=== PATIENT | female | born 1975 | race Caucasian/White ===

== ENCOUNTER → 2021-12-28 | Outpatient (CLI) | payer OTHER ==
--- NOTE | 2022-02-06 10:24 | P.CEMON ---
Sinus rhythm Sinus tachycardia Nonsustained ventricular tachycardia episodes 147 beats, another for 4 beats and yet another for 4 beats Occasional PVCs
== END | disposition home or self-care (01) ==
LOC: RADECHMAIN 07:39
PROVIDERS: ATTEND Family Medicine
DX: R00.2 Palpitations (principal); R00.0 Tachycardia, unspecified
CPT/HCPCS: 93270

== ENCOUNTER 2022-07-04 05:00 | Observation (INO) | payer OTHER ==
[2022-07-04] MEDS ORDERED: SODIUM CHLORIDE 0.9% 1,000 ML IV STA (05:07)
[2022-07-04] MEDS ORDERED: MORPHINE SULFATE 4 MG/ML SYRINGE IV STA (05:07)
[2022-07-04] MEDS ORDERED: ONDANSETRON 4 MG/2 ML VIAL IVP STA (05:07)
--- NOTE | 2022-07-04 05:08 | ED ---
Abdominal Pain HPI <Serene Becerra - Last Filed: 07/04/22 09:13> - General Source: patient, RN notes reviewed, old records reviewed Mode of arrival: ambulatory Limitations: no limitations - History of Present Illness MD Complaint: abdominal pain -: hour(s) Location: periumbilical, epigastric Radiation: epigastric Migration to: epigastric Severity: moderate Quality: stabbing, aching Consistency: intermittent Improves With: nothing Worsens With: nothing Context: sick contacts Associated Symptoms: nausea, vomiting Treatments Prior to Arrival: NSAIDs <Evangelista Ambriz - Last Filed: 07/12/22 22:06> - General Chief Complaint: Abdominal Pain Stated Complaint: Abd Pain Time Seen by Provider: 07/04/22 05:08 - Related Data Home Medications Medication Instructions Recorded Confirmed Liraglutide [Saxenda] 3 mg SQ DAILY 07/04/22 07/04/22 Previous Rx's Medication Instructions Recorded HYDROcodone/APAP 5-325MG [Douglas 1 tab PO Q6HR PRN 3 Days #12 tab 07/05/22 5-325] Levofloxacin [Levaquin] 500 mg PO DAILY 10 Days #10 tab 07/05/22 Docusate [Colace] 100 mg PO BID PRN #20 capsule 07/06/22 Famotidine [Pepcid] 20 mg PO DAILY #30 tablet 07/06/22 Allergies Allergy/AdvReac Type Severity Reaction Status Date / Time hydromorphone [From Dilaudid] Allergy Itching Verified 07/05/22 07:09 piperacillin [From Zosyn] Allergy Rash/Hives Verified 07/05/22 07:09 tazobactam [From Zosyn] Allergy Rash/Hives Verified 07/05/22 07:09 Review of Systems ROS Other: All systems not noted in ROS Statement are negative. <Serene Becerra - Last Filed: 07/04/22 09:13> ROS Other: All systems not noted in ROS Statement are negative. <Evangelista Ambriz - Last Filed: 07/12/22 22:06> ROS Statement: Those systems with pertinent positive or pertinent negative responses have been documented in the HPI. Past Medical History Past Medical History: No Reported History History of Any Multi-Drug Resistant Organisms: None Reported Past Surgical History: No Surgical Hx Reported Past Psychological History: No Psychological Hx Reported Smoking Status: Never smoker Past Alcohol Use History: Rare Past Drug Use History: None Reported <Evangelista Ambriz - Last Filed: 07/12/22 22:06> General Exam Limitations: no limitations General appearance: alert, in no apparent distress Head exam: Present: atraumatic, normocephalic, normal inspection Eye exam: Present: normal appearance, PERRL, EOMI. Absent: scleral icterus, conjunctival injection, periorbital swelling ENT exam: Present: normal exam, mucous membranes moist Neck exam: Present: normal inspection. Absent: tenderness, meningismus, lymphadenopathy Respiratory exam: Present: normal lung sounds bilaterally. Absent: respiratory distress, wheezes, rales, rhonchi, stridor Cardiovascular Exam: Present: regular rate, normal rhythm, normal heart sounds. Absent: systolic murmur, diastolic murmur, rubs, gallop, clicks GI/Abdominal exam: Present: soft, normal bowel sounds. Absent: distended, tenderness, guarding, rebound, rigid Extremities exam: Present: normal inspection, full ROM, normal capillary refill. Absent: tenderness, pedal edema, joint swelling, calf tenderness Back exam: Present: normal inspection Neurological exam: Present: alert, oriented X3, CN II-XII intact Psychiatric exam: Present: normal affect, normal mood Skin exam: Present: warm, dry, intact, normal color. Absent: rash <Evangelista Ambriz - Last Filed: 07/12/22 22:06> Course <Evangelista Ambriz - Last Filed: 07/12/22 22:06> Vital Signs 07/04/22 07/04/22 07/04/22 05:02 07:58 09:27 Temperature 97.5 F L Pulse Rate 72 67 67 Respiratory 18 18 18 Rate Blood Pressure 128/69 116/74 114/80 O2 Sat by Pulse 100 99 97 Oximetry 07/04/22 07/04/22 07/04/22 10:50 13:08 16:00 Temperature 97.5 F L Pulse Rate 64 66 65 Respiratory 18 16 16 Rate Blood Pressure 114/76 116/83 116/85 O2 Sat by Pulse 98 100 99 Oximetry 07/04/22 17:34 Temperature 97.6 F Pulse Rate 61 Respiratory 16 Rate Blood Pressure 119/84 O2 Sat by Pulse 99 Oximetry - Reevaluation(s) Reevaluation #1: 07/04/22 Medical records reviewed Patient symptoms improved here in the ER Patient informed of results and questions answered (Evangelista Ambriz) Medical Decision Making - Lab Data Result diagrams: 07/04/22 05:54 07/04/22 05:54 <Serene Becerra - Last Filed: 07/04/22 09:13> - Lab Data Result diagrams: 07/05/22 18:33 07/05/22 05:10 <Evangelista Ambriz - Last Filed: 07/12/22 22:06> - Medical Decision Making Patient was signed out to me. Ultrasound does return. Concerns for acute on chronic cholecystitis. Patient also has cholelithiasis. Did receive multiple doses of pain medications in the emergency department. Spoke with Dr. Crowe who is agreeable to admit the patient for observation. (Serene Becerra) - Lab Data Lab Results 07/04/22 07/04/22 07/04/22 Range/Units 05:54 05:54 05:54 WBC 6.9 (3.8-10.6) k/uL RBC 4.80 (3.80-5.40) m/uL Hgb 13.0 (11.4-16.0) gm/dL Hct 38.7 (34.0-46.0) % MCV 80.6 (80.0-100.0) fL MCH 27.1 (25.0-35.0) pg MCHC 33.6 (31.0-37.0) g/dL RDW 14.7 (11.5-15.5) % Plt Count 216 (150-450) k/uL MPV 7.3 Neutrophils % 59 % Lymphocytes % 31 % Monocytes % 4 % Eosinophils % 4 % Basophils % 0 % Neutrophils # 4.0 (1.3-7.7) k/uL Lymphocytes # 2.1 (1.0-4.8) k/uL Monocytes # 0.3 (0-1.0) k/uL Eosinophils # 0.3 (0-0.7) k/uL Basophils # 0.0 (0-0.2) k/uL PT 10.3 (9.0-12.0) sec INR 0.9 (<1.2) APTT 23.7 (22.0-30.0) sec Sodium 138 (137-145) mmol/L Potassium 4.4 (3.5-5.1) mmol/L Chloride 107 (98-107) mmol/L Carbon Dioxide 26 (22-30) mmol/L Anion Gap 5 mmol/L BUN 14 (7-17) mg/dL Creatinine 0.85 (0.52-1.04) mg/dL Est GFR (CKD-EPI)AfAm >90 (>60 ml/min/1.73 sqM) Est GFR (CKD-EPI)NonAf 82 (>60 ml/min/1.73 sqM) Glucose 96 (74-99) mg/dL Calcium 8.6 (8.4-10.2) mg/dL Total Bilirubin 1.0 (0.2-1.3) mg/dL AST 32 (14-36) U/L ALT 28 (4-34) U/L Alkaline Phosphatase 82 (38-126) U/L Total Protein 7.0 (6.3-8.2) g/dL Albumin 4.2 (3.5-5.0) g/dL Amylase 43 (30-110) U/L Lipase 151 (23-300) U/L Disposition Decision to Admit Reason: Admit from EC Decision Date: 07/04/22 Decision Time: 09:14 <Serene Becerra - Last Filed: 07/04/22 09:13> Is patient prescribed a controlled substance at d/c from ED?: No Time of Disposition: 07:00 <Evangelista Ambriz - Last Filed: 07/12/22 22:06> Clinical Impression: Abdominal pain, Cholelithiasis, Cholecystitis Disposition: ADMITTED IP TO THIS [facility] Condition: Good
[2022-07-04 06:03] LABS: Basophils % (A) 0 %; Eosinophils # (A) 0.3 k/uL (0-0.7); Eosinophils % (A) 4 %; HCT 38.7 % (34.0-46.0); Lymphocytes # (A) 2.1 k/uL (1.0-4.8); Lymphocytes % (A) 31 %; MCH 27.1 pg (25.0-35.0); MCHC 33.6 g/dL (31.0-37.0); MCV 80.6 fL (80.0-100.0); Mean Platelet Volume 7.3; Monocytes # (A) 0.3 k/uL (0-1.0); Monocytes % (A) 4 %; Neutrophils % (A) 59 %; Platelet Count 216 k/uL (150-450); RDW 14.7 % (11.5-15.5); WBC 6.9 k/uL (3.8-10.6)
[2022-07-04 06:15] LABS: ALT 28 U/L (4-34); AST 32 U/L (14-36); African American GFR (CKD) >90 (>60 ml/min/1.73 sqM); Albumin 4.2 g/dL (3.5-5.0); Alkaline Phosphatase 82 U/L (38-126); Amylase 43 U/L (30-110); Anion Gap 5 mmol/L; Blood Urea Nitrogen 14 mg/dL (7-17); Calcium 8.6 mg/dL (8.4-10.2); Carbon Dioxide 26 mmol/L (22-30); Chloride 107 mmol/L (98-107); Glucose 96 mg/dL (74-99); Lipase 151 U/L (23-300); Non-African American GFR(CKD) 82 (>60 ml/min/1.73 sqM); Potassium 4.4 mmol/L (3.5-5.1); Sodium 138 mmol/L (137-145)
[2022-07-04 06:18] LABS: INR 0.9 (<1.2); Partial Thromboplastin Time 23.7 sec (22.0-30.0); Prothrombin Time 10.3 sec (9.0-12.0)
--- NOTE | 2022-07-04 06:55 | CT ---
EXAMINATION TYPE: CT abdomen pelvis w con DATE OF EXAM: 07/04/2022 COMPARISON: None HISTORY: Upper abd pain, radiating around back CT DLP: 1798 mGycm Automated exposure control for dose reduction was used. CONTRAST: Performed with IV Contrast, patient injected with 100 mL of Isovue 300. Images obtained from the diaphragm to the floor the pelvis with the IV contrast. There are some interstitial infiltrates and subsegmental atelectasis at the lung bases. Heart size is normal. No pericardial effusion. There is fatty infiltration of the liver. There are multiple calcif ied gallstones. Spleen is intact. Stomach is intact. No pancreatic mass. The bile ducts are not dilat ed. There is no adrenal mass. Kidneys show satisfactory contrast opacification. There is no hydronephrosi s. Appendix is intact. The bladder distends smoothly. Uterus is anteverted. No free fluid in the pelv is. No pelvic mass. The lumbar vertebrae have normal alignment. Posterior elements are intact. No compression fracture. T he bony pelvis is intact. Hip joints are intact. Small bowel pattern is normal. Terminal ileum is intact. Appendix is posterior and appears normal. Li alla is enlarged and measures 21.5 cm. IMPRESSION: Normal appendix. No acute abnormality in the abdomen and pelvis. Cholelithiasis. No dilated ducts. Fatty infiltration of the liver and hepatomegaly.
[2022-07-04] MEDS ORDERED: HYDROmorphone 0.5 MG/0.5 ML SYRINGE IVP STA (07:02)
[2022-07-04] MEDS ORDERED: KETOROLAC 15 MG/ML 1 ML VIAL IVP STA (07:02)
--- NOTE | 2022-07-04 08:03 | US ---
EXAMINATION TYPE: US gallbladder DATE OF EXAM: 07/04/2022 COMPARISON: CT same day CLINICAL HISTORY: 46-year-old female pain. Episodes of abdominal pain, gb stones on CT TECHNIQUE: Multiple sonographic images of the right upper quadrant are obtained. FINDINGS: EXAM MEASUREMENTS: Liver Length: 18.8 cm Gallbladder Wall: 0.4 cm CBD: 0.6 cm Right Kidney: 10.7 x 4.1 x 4.7 cm CLINICAL EDUCATION CONSULTANT NOTES:bowel gas limits exam Pancreas: Only portions of the pancreatic body are seen. The head and tail are secured by bowel gas s hadowing. Liver: Mildly enlarged, echogenic and difficult to penetrate Gallbladder: Large fold with multiple stones. The wall is mildly thickened and when rolling patient LLD, neck stone did not move. No surrounding fluid. Evidence for sonographic Kebede's sign: yes CBD: wnl Right Kidney: 1.0 x 0.9 cm mid pole stone. No hydronephrosis. IMPRESSION: 1. There is cholelithiasis and mild gallbladder wall thickening which may reflect chronic cholecystit is. However, given the positive sonographic Kebede sign, patient may be developing acute cholecystiti s. If further imaging assessment is desired, HIDA scan can be considered. 2. Bile duct upper limits of normal in caliber at 6 mm. 3. Mild hepatomegaly at 18.8 cm with moderate to severe hepatic steatosis. Correlate with LFTs, lipid profile, and patient risk factors. 4. A 1 cm nonobstructive right renal calculus.
[2022-07-04] MEDS ORDERED: PIPERACILLIN-TAZOBACTAM 3.375 GM in SODIUM CHLORIDE 0.9% 100 ML IVPB STA (09:11)
[2022-07-04] MEDS ORDERED: ONDANSETRON 4 MG/2 ML VIAL IVP PRN (09:14)
[2022-07-04] MEDS ORDERED: NALOXONE 0.4 MG/ML 1 ML VIAL IV PRN (09:14)
[2022-07-04] MEDS: SODIUM CHLORIDE 0.9% 1,000 ML IV SCH ×2 (09:27→20:57)
[2022-07-04] MEDS ORDERED: diphenhydrAMINE 50 MG/ML 1 ML VIAL IVP STA (09:44)
--- NOTE | 2022-07-04 13:35 | P.GSHP ---
History of Present Illness H&P Date: 07/04/22 CHIEF COMPLAINT: Abdominal pain HISTORY OF PRESENT ILLNESS: This is a 46-year-old female presented to the hospital with complaints of right upper quadrant abdominal pain that radiates to her back. She reports symptoms started yesterday evening around 9:30. She did eat [employer] for dinner. She denies any nausea or vomiting. She reports having similar symptoms about a month ago that resolved on her own. Patient reports that the pain was very severe she is required multiple doses of IV pain medication in the ER. Patient denies any fevers chills or sweats. She denies any prior history of abdominal surgery. She was on Zosyn this is been discontinued due to it causing hives. She received a dose of Benadryl and the ER. PAST MEDICAL HISTORY: Heart palpitations PAST SURGICAL HISTORY: See below MEDICATIONS: See below ALLERGIES: See below SOCIAL HISTORY: No illicit drug use. REVIEW OF SYSTEMS: CONSTITUTIONAL: Denies fever or chills. HEENT: Denies blurred vision, vision changes, or eye pain. Denies hemoptysis CARDIOVASCULAR: Denies chest pain or pressure. RESPIRATORY: No shortness of breath. GASTROINTESTINAL: See HPI for pertinent findings HEMATOLOGIC: Denies bleeding disorders. GENITOURINARY: Denies any blood in urine or increased urinary frequency. SKIN: Denies pruitis. Denies rash. PHYSICAL EXAM: VITAL SIGNS: Reviewed GENERAL: Well-developed in no acute distress. HEENT: No sclera icterus. Extraocular movements grossly intact. Moist buccal mucosa. Head is atraumatic, normocephalic. No nasal drainage. ABDOMEN: Soft. Nondistended. Tenderness to palpation right upper quadrant NEUROLOGIC: Alert and oriented. Cranial nerves II through XII grossly intact. LABORATORY DATA: WBC is 6.9 Hgb 13.0 platelets 216 INR 0.9 Sodium 138 potassium is 4.4 creatinine 0.85 Total bili is 1.0 AST 32 ALT 28 alk phos 82 lipase 151 IMAGING: Computed tomography scan abdomen and pelvis normal appendix. No acute abnormality in the abdomen and pelvis. Cholelithiasis. No dilated ducts. Fatty infiltration of the liver and hepatomegaly. Gallbladder ultrasound cholelithiasis and mild gallbladder wall thickening which may reflect chronic cholecystitis. However given the positive Kebede sign patient may be developing acute cholecystitis. Bile duct upper limits of normal at 6 mm. Mild hepatomegaly at 18.8 cm with moderate to severe hepatic steatosis. 1 cm nonobstructed right renal calculus. ASSESSMENT: 1. Acute on chronic cholecystitis 2. Right upper quadrant abdominal pain PLAN: -Patient scheduled for laparoscopic cholecystectomy tomorrow, 07/05/[address] Crowe -Nothing by mouth after midnight -Okay for low-fat diet today -Change IV antibiotics to Levaquin due to ALLERGY to Zosyn. -Continue supportive care -Continue IV fluids -Consult medicine for medical management Physician Senior Product Consultant note has been reviewed by physician. Signing provider agrees with the documented findings, assessment, and plan of care. Past Medical History Past Medical History: No Reported History History of Any Multi-Drug Resistant Organisms: None Reported Past Surgical History: No Surgical Hx Reported Past Psychological History: No Psychological Hx Reported Smoking Status: Never smoker Past Alcohol Use History: Rare Past Drug Use History: None Reported Medications and Allergies Home Medications Medication Instructions Recorded Confirmed Type Liraglutide [Saxenda] 3 mg SQ DAILY 07/04/22 07/04/22 History Allergies Allergy/AdvReac Type Severity Reaction Status Date / Time piperacillin [From Zosyn] Allergy Rash/Hives Verified 07/04/22 10:48 tazobactam [From Zosyn] Allergy Rash/Hives Verified 07/04/22 10:48 Surgical - Exam Vital Signs Temp Pulse Resp BP Pulse Ox 97.5 F L 72 18 128/69 100 07/04/22 05:02 07/04/22 05:02 07/04/22 05:02 07/04/22 05:02 07/04/22 05:02 Results - Labs 07/04/22 05:54 07/04/22 05:54 Diabetes panel 07/04/22 Range/Units 05:54 Sodium 138 (137-145) mmol/L Potassium 4.4 (3.5-5.1) mmol/L Chloride 107 (98-107) mmol/L Carbon Dioxide 26 (22-30) mmol/L BUN 14 (7-17) mg/dL Creatinine 0.85 (0.52-1.04) mg/dL Glucose 96 (74-99) mg/dL Calcium 8.6 (8.4-10.2) mg/dL AST 32 (14-36) U/L ALT 28 (4-34) U/L Alkaline Phosphatase 82 (38-126) U/L Total Protein 7.0 (6.3-8.2) g/dL Albumin 4.2 (3.5-5.0) g/dL Calcium panel 07/04/22 Range/Units 05:54 Calcium 8.6 (8.4-10.2) mg/dL Albumin 4.2 (3.5-5.0) g/dL Pituitary panel 07/04/22 Range/Units 05:54 Sodium 138 (137-145) mmol/L Potassium 4.4 (3.5-5.1) mmol/L Chloride 107 (98-107) mmol/L Carbon Dioxide 26 (22-30) mmol/L BUN 14 (7-17) mg/dL Creatinine 0.85 (0.52-1.04) mg/dL Glucose 96 (74-99) mg/dL Calcium 8.6 (8.4-10.2) mg/dL Adrenal panel 07/04/22 Range/Units 05:54 Sodium 138 (137-145) mmol/L Potassium 4.4 (3.5-5.1) mmol/L Chloride 107 (98-107) mmol/L Carbon Dioxide 26 (22-30) mmol/L BUN 14 (7-17) mg/dL Creatinine 0.85 (0.52-1.04) mg/dL Glucose 96 (74-99) mg/dL Calcium 8.6 (8.4-10.2) mg/dL Total Bilirubin 1.0 (0.2-1.3) mg/dL AST 32 (14-36) U/L ALT 28 (4-34) U/L Alkaline Phosphatase 82 (38-126) U/L Total Protein 7.0 (6.3-8.2) g/dL Albumin 4.2 (3.5-5.0) g/dL
[2022-07-04] MEDS: LEVOFLOXACIN 500MG-D5W PMX 500 MG in DEXTROSE/WATER 1 100ML.BAG IVPB SCH (13:54)
[2022-07-04] MEDS: HYDROmorphone 0.5 MG/0.5 ML SYRINGE IVP PRN ×2 (15:00→18:23)
--- NOTE | 2022-07-04 15:08 | P.CONS ---
History of Present Illness - Reason for Consult Diabetes mellitus type 2, preoperative clearance Past Medical History Past Medical History: No Reported History History of Any Multi-Drug Resistant Organisms: None Reported Past Surgical History: No Surgical Hx Reported Past Psychological History: No Psychological Hx Reported Smoking Status: Never smoker Past Alcohol Use History: Rare Past Drug Use History: None Reported Medications and Allergies Home Medications Medication Instructions Recorded Confirmed Type Liraglutide [Saxenda] 3 mg SQ DAILY 07/04/22 07/04/22 History Allergies Allergy/AdvReac Type Severity Reaction Status Date / Time piperacillin [From Zosyn] Allergy Rash/Hives Verified 07/04/22 10:48 tazobactam [From Zosyn] Allergy Rash/Hives Verified 07/04/22 10:48 Physical Exam Vitals: Vital Signs Temp Pulse Resp BP Pulse Ox 07/04/22 13:08 66 16 116/83 100 07/04/22 10:50 64 18 114/76 98 07/04/22 09:27 67 18 114/80 97 07/04/22 07:58 67 18 116/74 99 07/04/22 05:02 97.5 F L 72 18 128/69 100 Intake and Output 07/04/22 07/04/22 07/04/22 06:59 14:59 22:59 Other: Weight 101.605 kg Results CBC & Chem 7: 07/04/22 05:54 07/04/22 05:54
[2022-07-04] MEDS ORDERED: PIPERACILLIN-TAZOBACTAM 3.375 GM in SODIUM CHLORIDE 0.9% 100 ML IVPB SCH (16:00)
[2022-07-04 17:02] LABS: Glucose,Whole Blood 71 mg/dL (70-110)
[2022-07-04] MEDS: INSULIN ASPART (NovoLOG) 100 UNIT/ML VIAL SQ SCH ×2 (17:02→21:09)
[2022-07-04] MEDS ORDERED: MORPHINE SULFATE 2 MG/ML SYRINGE IVP PRN (20:16)
[2022-07-04] MEDS: KETOROLAC 15 MG/ML 1 ML VIAL IVP PRN (22:22)
[2022-07-05 05:34] LABS: Basophils % (A) 0 %; Eosinophils # (A) 0.1 k/uL (0-0.7); Eosinophils % (A) 3 %; HCT 34.1 % (34.0-46.0); HGB 11.1 gm/dL (11.4-16.0); Hypochromasia Slight; Lymphocytes # (A) 1.2 k/uL (1.0-4.8); Lymphocytes % (A) 23 %; MCH 26.9 pg (25.0-35.0); MCHC 32.5 g/dL (31.0-37.0); MCV 82.7 fL (80.0-100.0); Mean Platelet Volume 7.9; Monocytes # (A) 0.3 k/uL (0-1.0); Monocytes % (A) 5 %; Neutrophils # (A) 3.5 k/uL (1.3-7.7); Neutrophils % (A) 67 %; Platelet Count 168 k/uL (150-450); RBC 4.13 m/uL (3.80-5.40); RDW 14.9 % (11.5-15.5); WBC 5.1 k/uL (3.8-10.6)
[2022-07-05 05:42] LABS: ALT 40 U/L (4-34); AST 47 U/L (14-36); African American GFR (CKD) >90 (>60 ml/min/1.73 sqM); Albumin 3.1 g/dL (3.5-5.0); Albumin/Globulin Ratio 1.2; Alkaline Phosphatase 77 U/L (38-126); Anion Gap 4 mmol/L; Blood Urea Nitrogen 7 mg/dL (7-17); Calcium 7.8 mg/dL (8.4-10.2); Carbon Dioxide 25 mmol/L (22-30); Chloride 108 mmol/L (98-107); Globulin 2.5 g/dL; Glucose 99 mg/dL (74-99); Non-African American GFR(CKD) 86 (>60 ml/min/1.73 sqM); Potassium 4.3 mmol/L (3.5-5.1); Sodium 137 mmol/L (137-145); Total Bilirubin 1.2 mg/dL (0.2-1.3); Total Protein 5.6 g/dL (6.3-8.2)
[2022-07-05] MEDS ORDERED: diphenhydrAMINE 50 MG/ML 1 ML VIAL IVP STA (07:04)
[2022-07-05] MEDS ORDERED: IV FLUID CONTINUATION 1,000 ML IV ONE (07:06)
[2022-07-05] MEDS ORDERED: HEPARIN SODIUM,PORCINE/PF 5,000 UNIT/0.5 ML SYRINGE SQ ONE (07:23)
[2022-07-05] MEDS ORDERED: ONDANSETRON 4 MG/2 ML VIAL IVP ONE (07:35)
[2022-07-05] MEDS ORDERED: DEXAMETHASONE SOD PHOSPHATE 4 MG/ML 1 ML VIAL IV ONE (07:38)
[2022-07-05] MEDS ORDERED: HEPARIN SODIUM,PORCINE 5,000 UNIT/ML 1 ML VIAL IV ONE (07:39)
[2022-07-05] MEDS ORDERED: MIDAZOLAM 2 MG/2 ML VIAL ONE (07:58)
[2022-07-05] MEDS ORDERED: ROCURONIUM 10 MG/ML (5 ML VIAL) IV ONE (07:58)
[2022-07-05] MEDS ORDERED: NEOSTIGMINE 1 MG/ML 10 ML VIAL ONE (07:58)
[2022-07-05] MEDS ORDERED: SUCCINYLCHOLINE CHLORIDE 200 MG/10 ML VIAL IV ONE (07:58)
[2022-07-05] MEDS ORDERED: PROPOFOL 10 MG/ML 20 ML VIAL IV ONE (07:58)
[2022-07-05] MEDS ORDERED: KETOROLAC 15 MG/ML 1 ML VIAL ONE (07:58)
[2022-07-05] MEDS ORDERED: GLYCOPYRROLATE 0.2 MG/ML 2 ML VIAL ONE (07:58)
[2022-07-05] MEDS ORDERED: LIDOCAINE 2% INJ 20 MG/ML (2 ML VIAL) ONE (07:58)
[2022-07-05] MEDS ORDERED: fentaNYL (PF) 50 MCG/ML 2 ML AMP ONE (07:58)
[2022-07-05] MEDS ORDERED: LIDOCAINE 1%-EPI 1:100,000 20 ML VIAL SQ ONE (08:14)
--- NOTE | 2022-07-05 08:54 | P.OP ---
Date of Procedure: 07/05/22 Preoperative Diagnosis: Cholecystitis Postoperative Diagnosis: Cholecystitis Procedure(s) Performed: Laparoscopic cholecystectomy Anesthesia: OLAMIDE Surgeon: Anuj Crowe Estimated Blood Loss (ml): 5 Pathology: other (Gallbladder) Condition: stable Disposition: PACU Description of Procedure: The patient was placed on the operating table. The patient received a general endotracheal tube anesthesia. The patients abdomen was prepped and draped in the usual sterile fashion. Through an infraumbilical stab incision, the fascia of the anterior abdominal wall was grasped with a pair of Kochers and then the Veress needle was placed in the peritoneal cavity. Position of the Veress needle was confirmed with positive drop test. The abdomen was then insufflated. After adequate insufflation, the 10 mm trocar was placed in the peritoneal cavity. Following this the laparoscope was placed in the peritoneal cavity. The patient was placed in the head-up, right side up position and then a 5 mm trocar was placed in the right lateral and right subcostal position under direct visualization. A 8 mm trocar was placed in the epigastric position. The gallbladder was grasped in the fundus and infundibulum. Traction on the gallbladder was placed in the lateral and the cephalad positions. The triangle of Calot was visualized.. The cystic duct was bluntly dissected until the union of the cystic duct and common bile duct was seen. A critical view of safety was achieved. The cystic duct was then divided and sealed with the Harmonic scissors. A PDS Endoloop was then placed throughout the cystic duct stump. The cystic artery divided and sealed with the Harmonic scissors. The gallbladder was then removed from the liver bed using Harmonic scissors. The gallbladder was then extracted through the epigastric port site. Operative field was checked for any bleeding spots and Harmonic scissors was used to coagulate the liver bed. The abdomen was irrigated. The trocars were removed. The skin was closed using interrupted 3-0 Vicryl suture. Dermabond dressing were applied. The patient tolerated the procedure well.
[2022-07-05] MEDS ORDERED: HYDROcodone/APAP 7.5-325MG 1 EACH TAB PO PRN (08:55)
[2022-07-05] MEDS ORDERED: HYDROmorphone 1 MG/ML 1 ML SYRINGE IVP PRN (08:55)
[2022-07-05] MEDS: INSULIN ASPART (NovoLOG) 100 UNIT/ML VIAL SQ SCH ×4 (09:42→21:01)
[2022-07-05] MEDS: SODIUM CHLORIDE 0.9% 1,000 ML IV SCH ×2 (11:00→21:04)
--- NOTE | 2022-07-05 13:34 | P.PN ---
Subjective In 07/05/2022 Patient's pain significantly improved after cholecystectomy patient didn't pass gas yet patient is otherwise clinically doing well Constitutional: Denied any fatigue denied any fever. Cardio vascular: denied any chest pain, palpitations Gastrointestinal denied any nausea vomiting Pulmonary: Denied any shortness of breath cough Neurologic denied any new focal deficits All inpatient medications were reviewed and appropriate changes in these medications as dictated in the interval history and assessment and plan. GENERAL: The patient is alert and oriented x3, not in any acute distress. Well developed, well nourished. HEENT: Pupils are round and equally reacting to light. EOMI. No scleral icterus. No conjunctival pallor. Normocephalic, atraumatic. No pharyngeal erythema. No thyromegaly. CARDIOVASCULAR: S1 and S2 present. No murmurs, rubs, or gallops. PULMONARY: Chest is clear to auscultation, no wheezing or crackles. ABDOMEN: Soft, nontender, nondistended, normoactive bowel sounds. No palpable organomegaly. MUSCULOSKELETAL: No joint swelling or deformity. EXTREMITIES: No cyanosis, clubbing, or pedal edema. NEUROLOGICAL: Gross neurological examination did not reveal any focal deficits. SKIN: No rashes. 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, although presently not an issue DVT prophylaxis: As per primary service Objective - Vital Signs Vital signs: Vital Signs Temp 97.7 F 07/05/22 10:32 Pulse 67 07/05/22 12:32 Resp 18 07/05/22 10:32 BP 110/74 07/05/22 12:32 Pulse Ox 97 07/05/22 12:32 FiO2 Intake & Output 07/04/22 07/05/22 07/05/22 18:59 06:59 18:59 Intake Total 800 Output Total 20 Balance 780 Weight 101.605 kg Intake: IV 800 Output: Estimated Blood Loss 20 Other: # Voids 3 1 - Labs CBC & Chem 7: 07/05/22 05:10 07/05/22 05:10 Labs: Abnormal Lab Results - Last 24 Hours (Table) 07/05/22 07/05/22 Range/Units 05:10 05:10 Hgb 11.1 L (11.4-16.0) gm/dL Chloride 108 H (98-107) mmol/L Calcium 7.8 L (8.4-10.2) mg/dL AST 47 H (14-36) U/L ALT 40 H (4-34) U/L Total Protein 5.6 L (6.3-8.2) g/dL Albumin 3.1 L (3.5-5.0) g/dL
[2022-07-05] MEDS: LEVOFLOXACIN 500MG-D5W PMX 500 MG in DEXTROSE/WATER 1 100ML.BAG IVPB SCH (13:50)
[2022-07-05] MEDS: KETOROLAC 15 MG/ML 1 ML VIAL IVP PRN (16:05)
[2022-07-05 18:44] LABS: Basophils % (A) 0 %; Eosinophils % (A) 0 %; HCT 35.3 % (34.0-46.0); HGB 11.9 gm/dL (11.4-16.0); Hypochromasia Slight; Lymphocytes # (A) 0.5 k/uL (1.0-4.8); Lymphocytes % (A) 7 %; MCH 27.5 pg (25.0-35.0); MCHC 33.8 g/dL (31.0-37.0); MCV 81.4 fL (80.0-100.0); Mean Platelet Volume 7.6; Monocytes # (A) 0.2 k/uL (0-1.0); Monocytes % (A) 3 %; Neutrophils # (A) 7.2 k/uL (1.3-7.7); Neutrophils % (A) 90 %; Platelet Count 205 k/uL (150-450); RBC 4.34 m/uL (3.80-5.40); RDW 14.6 % (11.5-15.5)
[2022-07-06] MEDS: INSULIN ASPART (NovoLOG) 100 UNIT/ML VIAL SQ SCH (06:27)
[2022-07-06 07:36] VITALS: BP 107/66; PULSE 70; RESP 18; TEMP 98.1
--- NOTE | 2022-07-06 10:20 | P.PN ---
Progress Note - Text Progress Note Date: 07/06/22 Patient feels better. She's requesting home. Verified exam vessels are still. Abdomen soft. Patiently discharged home today.
--- NOTE | 2022-07-06 16:29 | P.PN ---
Subjective Progress Note Date: 07/06/22 In 07/05/2022 Patient's pain significantly improved after cholecystectomy patient didn't pass gas yet patient is otherwise clinically doing well 07/06/2022 Patient is evaluated today on medical floor. She is postoperative day #1 laproscopic cholecystecomy. She reports minimal abdominal pain controlled with oral pain medications. She is passing gas. No BM yet but has bowel sounds all 4 quadrants. She is tolerating diet. Most recent labs show white count of 8.0, hgb 11.9. Sodium 137, potassium 4.3. Creatinine stable. She has remained afebrile. Heart rate 70, blood pressure 107/66, 94% room air. Medically she can be discharged home when cleared by primary. Will add PPI for GI prophylaxis and also colace. Review of systems. Constitutional: Denied any fatigue denied any fever. Cardio vascular: denied any chest pain, palpitations Gastrointestinal denied any nausea vomiting no diarrhea, passing gas no BM. Pulmonary: Denied any shortness of breath cough Neurologic denied any new focal deficits All inpatient medications were reviewed and appropriate changes in these medications as dictated in the interval history and assessment and plan. GENERAL: The patient is alert and oriented x3, not in any acute distress. Well developed, well nourished. HEENT: Pupils are round and equally reacting to light. EOMI. No scleral icterus. No conjunctival pallor. Normocephalic, atraumatic. No pharyngeal erythema. No thyromegaly. CARDIOVASCULAR: S1 and S2 present. No murmurs, rubs, or gallops. PULMONARY: Chest is clear to auscultation, no wheezing or crackles. ABDOMEN: Soft, nontender, nondistended, normoactive bowel sounds. No palpable organomegaly. Post surgical abdomen incisions sites are clean, approximated no surrounding erythema, no drainage. MUSCULOSKELETAL: No joint swelling or deformity. EXTREMITIES: No cyanosis, clubbing, or pedal edema. NEUROLOGICAL: Gross neurological examination did not reveal any focal deficits. SKIN: No rashes. 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 Follow up with primary care in 1 to 2 days. Follow up with surgery as recommended. Thank you for this consultation. The impression and plan of care has been dictated by Dorothy Valdez, Nurse Practitioner as directed. Dr. Naomi MD I have performed a history and physical examination and medical decision making of this patient, discussed the same with the dictator, and agree with the dictators assessment and plan as written, documented as a scribe. Based on total visit time, I have performed more than 50% of this visit. Objective - Vital Signs Vital signs: Vital Signs Temp 98.1 F 07/06/22 07:00 Pulse 70 07/06/22 07:00 Resp 18 07/06/22 07:00 BP 107/66 07/06/22 07:00 Pulse Ox 94 L 07/06/22 07:00 FiO2 Intake & Output 07/05/22 07/06/22 07/06/22 18:59 06:59 18:59 Intake Total 800 Output Total 20 Balance 780 Intake: IV 800 Output: Estimated Blood Loss 20 Other: # Voids 3 1 - Labs CBC & Chem 7: 07/05/22 18:33 07/05/22 05:10 Labs: Abnormal Lab Results - Last 24 Hours (Table) 07/05/22 Range/Units 18:33 Lymphocytes # 0.5 L (1.0-4.8) k/uL Assessment and Plan Time with Patient: Less than 30
== END 2022-07-06 12:10 | disposition home or self-care (01) ==
LOC: EC 05:00 → 6NMEDSUR 09:15
PROVIDERS: ADMIT Surgery; ATTEND Surgery
DX: K80.10 Calculus of gallbladder with chronic cholecystitis without obstruction (principal); J98.11 Atelectasis; K76.0 Fatty (change of) liver, not elsewhere classified; R16.0 Hepatomegaly, not elsewhere classified; E11.9 Type 2 diabetes mellitus without complications; Z88.1 Allergy status to other antibiotic agents; Z88.8 Allergy status to other drugs, medicaments and biological substances; Z79.899 Other long term (current) drug therapy; Z32.02 Encounter for pregnancy test, result negative
CPT/HCPCS: 96376 ×3; 96361 ×3; 96375 ×2; 96365 ×2; 96366; 96367; 99285; 36415; 81025 ×2; 88304; 80053 ×2; 82150; 83690; 85025 ×2; 85610; 85730; 76705; 74177; 47562; G0378 ×3; J2543; J2250; J0330; J2270; J1200; J1644; J1100; J2710; J2405 ×2; J1956 ×2; J3010; J1885 ×2; J2704; J1170; Q9967; J2001